=== PATIENT | female | born 1965 | race Caucasian/White ===

== ENCOUNTER 2024-04-20 10:12 | Emergency (ER) | payer OTHER ==
[2024-04-20 10:22] VITALS: BP 140/85; PULSE 90; RESP 16; TEMP 98.4; BMI 31.6
[2024-04-20] MEDS ORDERED: IBUPROFEN 400 MG TABLET (FP) PO ONE (10:42)
[2024-04-20] MEDS: IBUPROFEN 400 MG TABLET (FP) PO ONE (10:43)
== END 2024-04-20 12:05 | disposition home or self-care (01) ==
LOC: FER 10:12
DX: L03.012 Cellulitis of left finger (principal); W26.0XXA Contact with knife, initial encounter
CPT/HCPCS: 73140-TC-LT-FY; 99283-25